=== PATIENT | male | born 1990 | race Two or more races ===

== ENCOUNTER → 2024-07-30 | Outpatient (CLI) | payer OTHER, SELFPAY ==
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
== END | disposition home or self-care (01) ==
PROVIDERS: PCP Student in an Organized Health Care Education/Training Program; Referring Provider Student in an Organized Health Care Education/Training Program; Visit Provider Student in an Organized Health Care Education/Training Program
DX: S79.912A Unspecified injury of left hip, initial encounter (principal); S39.92XA Unspecified injury of lower back, initial encounter; M51.369 Other intervertebral disc degeneration, lumbar region without mention of lumbar back pain or lower extremity pain
CPT/HCPCS: 72110; 73502

== ENCOUNTER → 2024-10-31 | Outpatient (BNVA) | payer OTHER, SELFPAY | END | disposition home or self-care (01) | PROVIDERS: PCP Student in an Organized Health Care Education/Training Program; Referring Provider Student in an Organized Health Care Education/Training Program; Visit Provider Urology | DX: Z30.2 Encounter for sterilization (principal); E66.9 Obesity, unspecified; Z68.33 Body mass index [BMI] 33.0-33.9, adult | CPT/HCPCS: 81003; 99203; G0463 ==

== ENCOUNTER 2024-11-06 09:00 | Day surgery (SDC) | payer OTHER, SELFPAY ==
[2024-11-05 15:13] VITALS: BMI 33.2
--- NOTE | 2024-11-05 15:19 | SUR.PREOP ---
Phone interview pt instructed to come in tomorrow at 0930, NPO after MN.
[2024-11-06] VITALS (9 sets, daily range): BP systolic 118–139; BP diastolic 71–97; PULSE 69–87; RESP 12–20; TEMP 36.2–36.6; O2SAT 96–99; BMI 33.6
--- NOTE | 2024-11-06 09:30 | SUR.PREOP ---
pt stated he signed the sterilization consent in Dr Gallardo's office on 10/31/24 but accidentally wrote 11/01/23 on the consent. nicolasa Del Toro, Director of surgical services, [place] stated to have pt write the correct date and initial consent
--- NOTE | 2024-11-06 10:24 | SUR.PREOP ---
Dr Gallardo spoke to pts primary Dr Celis regarding the bumps to the pts lower abdomen.
--- NOTE | 2024-11-06 13:08 | SUR.PHASEI ---
pt received from OR in recovery bay 5. pt obtunded, breathing unlabored on 8l oxymask, oral airway in place. v/s stable. pt dressing to scrotal area cdi. report received from John SABA and Tha MATHEWS.
--- NOTE | 2024-11-06 13:08 | PD.SUROPNT ---
Date of Procedure 11/06/24 Pre Op Diagnosis Elective sterilization Post Op Diagnosis Same Procedure Bilateral vasectomy Findings Bilateral vas, Procedure Description Indication for procedure this is a 34-year-old gentleman he was seen on consultation he is with 3 children desired bilateral vasectomy procedure and complications were discussed with patient in great detail informed consent is obtained he understood very well there is no warranty for permanent sterilization literature regarding bilateral vasectomy was provided to the patient Patient was treated for impetigo lower abdominal, I discussed the patient with his PCP Dr. Mariano Dawson he did not see any contraindication for bilateral vasectomy I discussed this with the patient and he wanted me to go ahead for bilateral vasectomy This is [id number] male came for bilateral vasectomy procedure and complications were discussed with patient in great detail informed consent was obtained patient understood very well there is no warranty for permanent sterilization. Procedure patient was brought to the operating room in a satisfactory condition after appropriate premedication was put on the operating table in a supine position general anesthesia was given uneventfully parts were prepped and draped in a usual sterile fashion. Next the right vas deferens was palpated between 2 fingers and a thumb 2% lidocaine with quarter percent Marcaine was instilled appropriately vertical skin incision was made proper hemostasis was secured. Next the vas deferens was brought into the incision it was from its various fascial coverings between 2 silver clips centimeter of the vas deferens was excised. The lumen of the vas deferens was diathermized with coagulation diathermy distal end of the vas deferens was buried between various fascial layers. Skin was approximated with 3-0 chromic. Similar procedure was repeated on the opposite side. Next this sterile dressings were applied. Pressure bandage was given Patient having tolerated the procedure well and was sent to recovery room in a satisfactory condition to be discharged home with full postoperative instructions were verbally as well as in writing to be followed in urology office in 12 weeks' time. Anesthesia GETA Pathology / specimen None Estimated Blood Loss 0.5 Condition Stable Disposition PACU Surgeon Emanuel Gallardo MD Surgical Staff Operation Date: 11/06/24 11:45 Case Staff CARDIOLOGY FELLOW: Tha Aguirre
--- NOTE | 2024-11-06 13:18 | SUR.PHASEI ---
pt able to tolerate oral fluids without difficulty swallowing or nausea/vomiting.
--- NOTE | 2024-11-06 14:35 | SUR.PHASEII ---
pt awake and alert, breathing unlabored on room air. v/s stable. pt dressing to scrotal area cdi. pt able to ambulate to wheelchair with steady gait. d/c instructions given with Leslie in room, all questions answered. pt d/c via wheelchair with all belongings.
== END 2024-11-06 14:35 | disposition home or self-care (01) ==
PROVIDERS: PCP Student in an Organized Health Care Education/Training Program; Referring Provider Urology; Visit Provider Urology
PROC: (CPT 55250; principal; 2024-11-06 11:30)
DX: Z30.2 Encounter for sterilization (principal)
CPT/HCPCS: 55250; A4217; A4649; J0131; J2405; J2704; J3010; A9270

== ENCOUNTER → 2025-02-04 | Outpatient (BNVA) | payer OTHER, SELFPAY | END | disposition home or self-care (01) | PROVIDERS: PCP Student in an Organized Health Care Education/Training Program; Referring Provider Student in an Organized Health Care Education/Training Program; Visit Provider Urology | DX: Z98.52 Vasectomy status (principal); N40.0 Benign prostatic hyperplasia without lower urinary tract symptoms; E66.9 Obesity, unspecified; Z68.33 Body mass index [BMI] 33.0-33.9, adult | CPT/HCPCS: 81003; 99212; G0463 ==

== ENCOUNTER → 2025-02-04 | Outpatient (CLI) | payer BC, SELFPAY ==
[2025-02-04 16:20] LABS: Post Vasectomy Sperm Presence No Spermatozoa Seen (No Sperm)
== END | disposition home or self-care (01) ==
PROVIDERS: Referring Provider Urology; Visit Provider Urology
DX: Z01.89 Encounter for other specified special examinations (principal)
CPT/HCPCS: 89321